=== PATIENT | female | born 1930 | race Asian ===

== ENCOUNTER 2017-01-23 08:15 | Emergency (ER) | payer OTHER ==
[~2017-01-23] VITALS: Ht 157.5 cm; Wt 90.9 kg
[~2017-01-23 08:15] MED LIST: AMLO2.5T PO; LISI10TA PO; METF500T4 PO
[2017-01-23] MEDS ORDERED: MEMA10TA20 PO (08:28)
[2017-01-23] MEDS ORDERED: ASPI81TA2 PO (08:28)
[2017-01-23] MEDS ORDERED: PANT40TA25 PO (08:28)
[2017-01-23] MEDS ORDERED: METO50TA5 PO (08:28)
[2017-01-23] MEDS ORDERED: POTA-9 PO (08:28)
[2017-01-23] MEDS ORDERED: BISA10SU61 PR (08:28)
[2017-01-23] MEDS ORDERED: TEMA15CA PO (08:28)
[2017-01-23] MEDS ORDERED: FURO-152 PO (08:28)
[2017-01-23 08:37] LABS: GLUCOSE,POINT OF CARE 166 MG/DL (70-110)
[2017-01-23] MEDS ORDERED: ACETAMINOPHEN 325 MG TABLET PO ONE (08:45)
[2017-01-23 10:29] VITALS: BP 108/62
== END 2017-01-23 11:54 | disposition home or self-care (01) ==
LOC: EMS 08:20
DX: S80.02XA Contusion of left knee, initial encounter (principal); S14.109A Unspecified injury at unspecified level of cervical spinal cord, initial encounter; S09.90XA Unspecified injury of head, initial encounter; E11.9 Type 2 diabetes mellitus without complications; I10 Essential (primary) hypertension; Z79.82 Long term (current) use of aspirin; W06.XXXA Fall from bed, initial encounter; Y93.89 Activity, other specified; Y92.89 Other specified places as the place of occurrence of the external cause; Y99.8 Other external cause status
CPT/HCPCS: 70450; 72125; 82962; 99284